=== PATIENT | male | born 2000 ===

== ENCOUNTER → 2023-09-25 07:36 | Outpatient (CLI) | payer OTHER, SELFPAY ==
--- NOTE | 2023-09-25 | DI.MRI.S_ITS ---
PROCEDURE: MR LUMBAR SPINE WO CON INDICATIONS: Low back pain, unspecified TECHNIQUE: Noncontrast sagittal T1 spin echo and T2 fast echo, sagittal STIR, and T2 fast spin echo through the lumbar spine. In cases with scoliosis, additional coronal T2 fast spin echo may be performed. COMPARISON: None. FINDINGS: Image quality: Excellent. Alignment and Curvature: There is normal bony alignment. Bone Marrow: Marrow is of normal overall signal. No acute vertebral body compression fractures. Spinal Cord: Conus medullaris terminates at the L1 level. Visualized cord demonstrates normal signal and size. Paraspinous Soft Tissues: No paravertebral masses. T12-L1: Normal appearance. L1-L2: Normal appearance. L2-L3: Normal appearance. L3-L4: Right paracentral annulus tear plus mild broad-based right paracentral disc protrusion. Facet hypertrophy. Epidural lipomatosis. Zjkx-xv-aijxbkjb canal stenosis. Mild impingement on right-sided nerve roots in the thecal sac. Reference axial image 21 of series 7. No foraminal narrowing. L4-L5: Posterior annulus tear plus broad-based mild posterior disc protrusion. Facet hypertrophy. Epidural lipomatosis. Nhty-nc-rohvycgq canal stenosis. Reference axial image 27 of series 7. L5-S1: Subtle annulus tear with minimal disc bulge. Facet hypertrophy. No canal stenosis. No significant foraminal stenosis. IMPRESSION: 1. There is mild multilevel underlying facet arthropathy. Additionally, there is multilevel epidural lipomatosis which contributes to canal stenosis. 2. At L3-L4, there is annulus tear plus right paracentral disc protrusion with nepk-kh-hpdlpcak canal stenosis. 3. At L4-L5, there is annulus tear plus broad-based posterior disc protrusion with mbbd-eq-kunjemog canal stenosis. 4. Annulus tear at L5-S1. Dictated by: Rahul Uribe M.D. on 09/25/2023 at 10:31 Approved by: Rahul Uribe M.D. on 09/25/2023 at 10:37
== END ==
DX: M47.816 Spondylosis without myelopathy or radiculopathy, lumbar region (principal); M47.817 Spondylosis without myelopathy or radiculopathy, lumbosacral region; M51.26 Other intervertebral disc displacement, lumbar region; M48.061 Spinal stenosis, lumbar region without neurogenic claudication
CPT/HCPCS: 72148